=== PATIENT | female | born 1960 | race Caucasian/White ===

== ENCOUNTER 2023-12-18 18:58 | Emergency (ER) | payer OTHER, SELFPAY ==
[2023-12-18 18:59] VITALS: BMI 44.6
[2023-12-18 19:02] VITALS: BP 160/100
[2023-12-18 19:29] LABS: Urine Albumin Negative (Neg - Trace); Urine Bilirubin Negative (Negative); Urine Character Clear (Clear); Urine Color Yellow; Urine Glucose Negative (Negative); Urine Ketone Negative (Negative); Urine Leukocyte Trace (Negative); Urine Nitrite Negative (Negative); Urine Occult Blood Negative (Negative); Urine Urobilinogen Negative (Neg - 1+)
[2023-12-18 19:36] LABS: Urine Red Blood Cell None Seen /HPF (0-2); Urine White Cell 0-2 /HPF (0-5)
[2023-12-18 20:09] VITALS: BP 157/78
[2023-12-18 20:18] LABS: % Basophils 0.5 % (0-2); % Eosinophils 1.3 % (0-6); % Immature Granulocytes 0.3 % (0-0.5); % Lymphocytes 22.1 % (20.5-51.1); % Monocytes 5.5 % (1.7-9.3); % Neutrophils 70.3 % (42.2-75.2); Absolute Basophils 0.1 10^3/uL (0-0.2); Absolute Eosinophils 0.1 10^3/uL (0-0.7); Absolute Lymphocytes 2.4 10^3/uL (1.2-3.4); Absolute Monocytes 0.6 10^3/uL (0.1-0.6); Absolute Neutrophils 7.5 10^3/uL (1.4-6.5); Hematocrit 39.9 % (37.0-47.0); Hemoglobin 13.8 g/dL (12.0-16.0); Mean Corp Hgb Conc. 34.6 g/dL (33.0-37.0); Mean Corpuscular Hgb 29.8 pg (27.0-31.0); Mean Corpuscular Volume 86.2 fL (81.0-99.0); Nucleated Red Blood Cells % 0 %; Platelet Count 172 10^3/uL (130-400); Red Blood Cell Count 4.63 10^6/uL (4.20-5.40); White Blood Cell Count 10.6 10^3/uL (4.8-10.8)
[2023-12-18 20:34] LABS: ALT (SGPT) 16 U/L (0-35); AST (SGOT) 26 U/L (14-36); Albumin 4.8 g/dl (3.5-5.0); Alkaline Phosphatase 78 U/L (38-126); Blood Urea Nitrogen 15 mg/dl (7-17); Carbon Dioxide 21 mmol/L (22-30); Chloride 109 mmol/L (98-107); Estimated Creatinine Clearance 123 ml/min; Glucose 127 mg/dl (70-99); Potassium 4.1 mmol/L (3.5-5.1); Sodium 140 mmol/L (135-145); Total Bilirubin 0.7 mg/dl (0.2-1.3); Total Protein 7.5 g/dl (6.3-8.2); eGFR > 60.00
[2023-12-18 20:35] LABS: Lipase 92 U/L (23-300)
--- NOTE | 2023-12-18 21:28 | ED.GENMED ---
History of Present Illness
General
Chief Complaint: Abdominal Pain
Source: patient
Exam Limitations: none
Time Seen by Provider: 12/18/23 19:30
Nursing documentation reviewed up to this point in time: agreed with
Travel History
Have you had any contact with someone who has COVID-19?: No
Do you have any symptoms of coronavirus? Fever > 100 degrees, chills, cough, shortness of breath, sore throat, loss of taste or smell, muscle aches, or headache?: No
History of Present Illness
History of Present Illness:
63 y/o F with h/o afib in the past
no on anticoagulation
here with lower abd pain since this morning
was initially lower midline but now in the RLQ, it was worse earlier but now is better, 10/04
no diarrhea but some difficulty moving her bowels today, no blood, no diarrhea, no nausea, no vomiting
no fever
pt thinks she has diveritculosis but has never had abx for it
stil lhas her appendix
remote misty
Past History
Past History
ED Past Medical History: Arrthythmia (Afib on ASA and Flecinide) and Other (osteoarthritis)
ED Past Surgical History: Cholecystectomy and Orthopedic (L hip replacement 2014)
Social History
Tobacco: Non-smoker
Alcohol: None
Drug: None
Personal:
Living: with family
Family History
Family History: Other (bradycardia )
Review of Systems
Review of Systems
Allergies reviewed?: Yes
All Other Systems: Not applicable
Phy Exam
Physical Exam
Physical Exam:
GENERAL: Alert , in no apparent distress
EYE: pupils equal and reactive
NECK: Supple
ENT: o/p clr, mmm.
CARDIAC: Regular rate and rhythm .
LUNGS: Clear breath sounds bilaterally, no acute respiratory distress, no wheezes/rales/rhonchi
ABDOMEN: Soft, mild RLQ tenderness, no r/g, no cvat, normal bowel sounds
NEUROLOGICAL: Alert and oriented, no focal neuro deficits
SKIN: Warm and dry, skin intact.
MUSCULOSKELETAL: No edema, well perfused.
PSYCH: Normal and appropriate interaction.
Course
Orders/Labs/Results
Orders:
Orders
12/18/23 19:12
IV Insert/Care/Rem.- Treatment PRN
Straight cath- Treatment ONCE
12/18/23 19:22
Urinalysis Reflex To Culture Urgent
Date Specimen was Collected: 12/18/23
Time Specimen was Collected: 19:12
Urine Microscopic Reflex Cult Urgent
12/18/23 20:05
CT Abd/Pel (IV only)-DH only Urgent
Comment:
Reason For Exam: rlq pain since this morning
12/18/23 20:10
Complete Blood Count/With Diff Urgent
Comprehensive Metabolic Panel Urgent
Lipase Urgent
12/18/23 21:35
Electrocardiogram (*1) Urgent
Reason for Study: QTc Monitoring
EKG- Treatment ONCE
12/18/23 21:36
Amoxicillin 875 mg/Clav 125 mg [Augmentin 875 mg/125 mg] 1 tablet PO NOW STA
Abnormal Lab Results
12/18/23 12/18/23
19:22 20:10
MPV 11.0 H fL
(7.4-10.4)
Absolute Neuts (auto) 7.5 H 10^3/uL
(1.4-6.5)
Chloride 109 H mmol/L
(98-107)
Carbon Dioxide 21 L mmol/L
(22-30)
Creatinine 0.5 L mg/dL
(0.6-1.0)
Glucose 127 H mg/dl
(70-99)
Leukocyte Esterase Rfl Trace A
(Negative)
12/18/23 20:10
12/18/23 20:10
Vital Signs
Initial and Last Documented VS:
Initial Vital Signs
Temp Pulse Resp BP Pulse Ox
98.1 F 85 20 160/100 98
12/18/23 19:02 12/18/23 19:02 12/18/23 19:02 12/18/23 19:02 12/18/23 19:02
Last Documented Vital Signs
Temp Pulse Resp BP Pulse Ox
98.1 F 82 16 150/70 99
12/18/23 19:02 12/18/23 22:23 12/18/23 22:23 12/18/23 22:23 12/18/23 22:23
MDM/Problems Addressed
Differential Diagnosis Includes:
divertic, appe
MDM/Problems Addressed:
63 y/o F with lower abd pain since this mornig, comes in waves
some change in stool appaerance today
no fever
well controlled pain currently,localized tender RLQ mildly
urine unremarkable
normal wbc
ct show uncomplicated sigmoid divertic
initially states all to pcn but pt is on flecainide making levaquin less than ideal
pt says she can tolerate amoxicillin, so will try augmentin
she had rash with penicillin remotely
d/c home
clear liquids
*Critical Care Note
Total Time (30-74mins, 75-104mins- exclusive of procedures): Not Applicable
ED Attending Note
-
Portions of this chart may have been created with voice recognition software.� Occasional wrong word or��sound alike� substitutions may have occurred due to the inherent limitations of voice recognition software.
Discharge Plan
Departure
Patient Disposition: Home (Routine Discharge)
Date of Disposition: 12/18/23
Time of Disposition: 21:32
Patient with high blood pressure during this ER visit?: Yes
Condition: Fair
Covid-19: Not Applicable
Discharge Problem:
Diverticulitis
Instructions: Diverticulitis (DC)
Prescriptions:
New
amoxicillin-pot clavulanate 875-125 mg tablet
1 tab PO Q12H Qty: 20 0RF
No Action
prednisone 50 MG tablet
50 mg PO DAILY Qty: 4 0RF
doxycycline monohydrate 100 mg capsule
100 mg PO BID Qty: 14 0RF
albuterol sulfate [ProAir HFA] 90 mcg/actuation Hfa Aerosol Inhaler
2 puff INHALATION Q4HPRN PRN (Reason: shortness of breath/cough) Qty: 90 0RF
Rx Instructions:
Dispense with spacer
Activity Restrictions/Additional Instructions:
YOUR CAT SCAN SHOWS SIGMOID DIVERTICULITIS
TRY CLEAR LIQUIDS FOR 24 HOURS
TAKE TYLENOL EVERY 6 HOURS NEEDED FOR PAIN
AUGMENTIN 1 TAB TWICE A DAY FOR 10 DAY
RETURN FOR:SEVERE PAIN, FEVER, VOMTING, BLOODY DIARRHEA OR ANY CONCERNS.
Interventions
Interventions:
*Risk Screen - Suicide Last Done: 12/18/23 19:02
*General Assessment Last Done: 12/18/23 19:02
*Neglect/Abuse Screening Last Done: 12/18/23 19:02
ED- Fall Risk Assessment Last Done: 12/18/23 19:02
*ED COVID-19 Vaccine History Last Done: 12/18/23 19:02
*Nursing Disposition Last Done: 12/18/23 22:24
MU-Ptskwp-Pjjrjnncsg Assessment Last Done: 12/18/23 20:15
Discharge Date and Time
Discharge Date/Time: 12/18/23 22:24
Print Language: CHINESE
[2023-12-18] MEDS: AUGMENTIN 875 MG/125 MG 1 TABLET PO (21:58)
[2023-12-18 22:23] VITALS: BP 150/70
== END 2023-12-18 22:24 | disposition home or self-care (01) ==
LOC: EMR 18:58
PROVIDERS: Emergency Medicine; EMERGENCY PHYSICIAN Emergency Medicine; FAMILY PHYSICIAN Family Medicine
DX: K57.92 Diverticulitis of intestine, part unspecified, without perforation or abscess without bleeding (principal); R10.9 Unspecified abdominal pain
CPT/HCPCS: 99284; 74177; 80053; 81003; 81015; 83690; 85025; Q9967

== ENCOUNTER → 2025-04-08 08:02 | Outpatient (REF) | payer BC, SELFPAY | LOC: HWRCS 08:02 | PROVIDERS: ATTENDING PHYSICIAN Internal Medicine Cardiovascular Disease; FAMILY PHYSICIAN Family Medicine | DX: I48.0 Paroxysmal atrial fibrillation (principal); E78.5 Hyperlipidemia, unspecified | CPT/HCPCS: 93306 ==

== ENCOUNTER → 2025-04-12 07:40 | Outpatient (REF) | payer BC, SELFPAY | LOC: PET 07:40 | PROVIDERS: ATTENDING PHYSICIAN Internal Medicine Cardiovascular Disease | DX: I48.0 Paroxysmal atrial fibrillation (principal); E66.9 Obesity, unspecified; E78.5 Hyperlipidemia, unspecified | CPT/HCPCS: 78431; A9555; J2785 ==

== ENCOUNTER → 2025-05-16 09:25 | Outpatient (REF) | payer BC, SELFPAY | LOC: DHSLP 09:25 | PROVIDERS: ATTENDING PHYSICIAN Internal Medicine Cardiovascular Disease; FAMILY PHYSICIAN Family Medicine | DX: G47.33 Obstructive sleep apnea (adult) (pediatric) (principal) | CPT/HCPCS: 95800 ==

== ENCOUNTER 2025-07-01 08:43 | Day surgery (SDC) | payer BC, SELFPAY ==
[2025-06-16 08:45] LABS: Hematocrit 39.1 % (37.0-47.0); Hemoglobin 12.9 g/dL (12.0-16.0); Mean Corp Hgb Conc. 33.0 g/dL (33.0-37.0); Mean Corpuscular Volume 91.1 fL (81.0-99.0); Nucleated Red Blood Cells % 0 %; Platelet Count 169 10^3/uL (130-400); Red Cell Dist. Width 13.5 % (11.5-14.5)
[2025-06-16 08:47] LABS: INR 1.02; PT 13.7 Sec (11.4-14.6)
[2025-06-16 09:33] LABS: ALT (SGPT) 14 U/L (0-35); AST (SGOT) 18 U/L (14-36); Albumin 4.4 g/dl (3.5-5.0); Alkaline Phosphatase 61 U/L (38-126); Blood Urea Nitrogen 19 mg/dl (7-17); Calcium 9.6 mg/dl (8.4-10.2); Carbon Dioxide 28 mmol/L (22-30); Chloride 108 mmol/L (98-107); Glucose 103 mg/dl (70-99); Magnesium 2.0 mg/dl (1.6-2.3); Potassium 4.4 mmol/L (3.5-5.1); Sodium 141 mmol/L (135-145); Total Protein 7.1 g/dl (6.3-8.2); eGFR > 60.00
[2025-06-16 13:36] VITALS: BMI 41.5
[2025-06-16 14:07] LABS: Free T3 3.87 pg/ml (2.77-5.27)
[2025-06-16 14:21] LABS: TSH 0.80 uIU/ml (0.47-4.68)
[2025-07-01] VITALS (9 sets, daily range): BP systolic 96–136; BP diastolic 45–90
[2025-07-01 13:27] LABS: ACT-LR - POC 250 Seconds (116-155)
[2025-07-01 13:44] LABS: ACT-LR - POC 295 Seconds (116-155)
[2025-07-01 14:05] LABS: ACT-LR - POC 339 Seconds (116-155)
[2025-07-01 14:25] LABS: ACT-LR - POC 245 Seconds (116-155)
--- NOTE | 2025-07-01 14:29 | ITS.CL.ABL ---
Flat Folding Machine Operator - Ablation
Ablation
Procedure Report:
Primary Industrial Education Teacher: Dr Otilia Sawyer
Procedure Date: 07/01/2025
Patient History:
Patient is a pleasant 65-year-old female with a past medical history significant for hypertension, hyperlipidemia, sleep apnea, arthritis, obesity, and symptomatic paroxysmal atrial fibrillation.
See H&P for complete details.
Indication:
Symptomatic paroxysmal atrial fibrillation
Breakthrough AF on antiarrhythmic medical therapy
Arrhythmia Specific History:
Prior Medical Therapies for Rate and Rhythm Control:
X Beta-edgar
[ ] Calcium channel-edgar
[ ] Amiodarone
[ ] Dronederone
[ ] Sotalol
X Flecainide
[ ] Dofetilide
X Options limited by bradycardia
[ ] Options limited by comorbid renal disease
Prior Procedural Therapies for AF/AFL:
[ ] Cardioversion
[ ] Pulmonary Vein Isolation
[ ] Posterior Wall Isolation
[ ] Additional lines (Specify)
[ ] Surgical Jordan-MAZE or PVI (Specify)
Procedure Performed:
X AF ablation procedure (82665) -- includes LA/CS pacing, trans-septal, 3D mapping, + ICE
[ ] +IV drug (20867)
[ ] +Other Arrhythmia (36019)
[ ] +Other AF Line/ablation (18765)
Risks and expected recovery has been explained in detail. Alternative options have been explored, and in a shared-decision making fashion we have decided that this was the most appropriate procedure.
Method
NPO status confirmed. Grounding pad applied. Defibrillator pads applied. Continuous surface ECG, pulse oximetry, and blood pressure were monitored. Procedure was performed under general anesthesia, with anesthesia services.
Both groins were clipped, prepped with Chloraprep, and draped in sterile fashion. Time out was called. Local anesthesia administered with bupivacaine. The right femoral vein was accessed for catheter placement, using ultrasound guidance (images
saved to record), micro-puncture needle/wire, and modified seldinger technique. 3 sheaths were placed. The following catheters were used:
[ ] Tacticath SE (D/F Curve) ablation catheter
X Viewflex 9Fr ICE catheter
X Inquiry decapolar 6Fr diagnostic catheter
[ ] CRD Hex 6Fr
X FlexCath Contour 10 Fr with PulseSelect PFA Catheter
X Advisor HD Grid Mapping Catheter, SE
[ ] Acuson AcuNav 8 Fr ICE catheter
[ ]Other: [ ]
Intracardiac ultrasound (ICE) was carefully advanced into the right atrium to guide sheath placement over a J-wire, catheter placement, guide trans-septal puncture, identify potential complications, identify anatomic structures and ensure proper
contact between ablation catheter and tissue.
Heparin was given prior to trans-septal puncture. Heparin was given to achieve and maintain a target ACT of 300-400 seconds throughout the procedure.
Trans-septal access was performed under ICE guidance. The trans-septal puncture was performed with a SafeSept wire through a Brockenbrough needle assembly through the steerable sheath. The wire was visualized as it entered the LSPV and system
advanced under ICE guidance and fluoroscopy into the LA. The Brockenbrough needle assembly, SafeSept wire and sheath dilator were removed under negative pressure. LA pressure was measured and recorded.
ICE and 3D mapping was performed to identify relevant cardiac structures. A careful 3D map was created to assess for regions of low-voltage and abnormal electrogram signals using HD grid mapping catheter and PulseSelect catheter. Additional mapping
was performed as outlined below. During initial mapping, patient went into atrial fibrillation. 200 J synchronous direct-current cardioversion was performed with scientology of sinus rhythm.
Prior to ablation, glycopyrrolate was provided. PulseSelect catheter was advanced over J-wire to the ostium of each vein. Pulmonary vein isolation was performed with ostial and antral lesions in a circumferential manner. Contact was visualized via
EAM, ICE, fluoroscopy, and EGM signals. During ablation, patient had returned of AF. Ablation was performed while patient in AF.
Following completion of ablation lesions, sinus rhythm was restored with a 200J synchronized DCCV and a post-ablation voltage/activation map was performed in sinus rhythm. Entrance and exit block were confirmed for each vein.
Catheter and sheath were removed from the left atrium and post-ablation intracardiac echo evaluation was consistent with pre-ablation with no changes and no pericardial effusion and there is no left atrial thrombus or left ventricle thrombus seen.
Electrophysiology study was performed. Hemostasis was obtained with Vascade for each sheath and with manual pressure. Protamine was used for reversal.
Estimated Blood Loss
5 mL
Complications
None
Fluoroscopy: 7.0 minutes; 114.57 mGy; DAP 11.3
LA Pressure: Pre 8 mmHg, post 10 mmHg
Baseline Intervals:
Rhythm: SR
WY: 148 ms
QRS: 124 ms
QT: 414 ms
QTc: 444 ms
A-A: 870 ms
R-R: 870 ms
Post-Procedure Intervals:
WY: 163 ms
QRS: 118 ms
QT: 464 ms
QTc: 469 ms
A-A: 980 ms
R-R: 980 ms
AVWB: 330 ms
AVNERP: 600/300 ms
AERP: 600/300 ms
Recommendations
- Bedrest with straight-leg precautions as ordered
- Anticipate same day discharge if patient meeting clinical metrics
- Resume home medications as indicated
- Ok to resume anticoagulation tonight if patient and groin sites stable
- Plan for follow-up in office as scheduled
- Continue beta-edgar and flecainide with plan for discontinuation at 3-month interval
Raul Cotto, , FACC, [facility]
Clinical Cardiac Dispute Coordinator
cc: Dr Otilia Sawyer; Dr Carlotta Mcnair
--- NOTE | 2025-07-01 15:07 | W.PN.UPDATE ---
Update Note
Progress Note Update
Addendum to ablation procedure performed 07/01/2025:
Patient stated to staff that she had not taken her oral anticoagulation for the past 2 days with last dose on Friday06/28/2025. Additionally, when questioned, patient stated she missed several doses of the last few weeks due to intermittent
nosebleeds. Out of safety, patient underwent ARA to rule out left atrial appendage thrombus prior to initiation of ablation. Report separately by Dr. Holm. No evidence of left atrial appendage thrombus on echocardiography.
--- NOTE | 2025-07-01 15:34 | W.PN.UPDATE ---
Update Note
Progress Note Update
Pt seen post PFA. Right groin site with vascade closure, no ht/bleeding. Post EKG NSR 60s, lateral TWI noted, as before. Resume eliquis tonight. Continue flecainide and metoprolol as before. Followup at [facility] as scheduled. Home today if groin
site/tele remain stable.
[2025-07-01] MEDS: ANESTHETIC LOZENGE 1 LOZENGE PO (16:56)
== END 2025-07-01 17:41 | disposition home or self-care (01) ==
LOC: CATH 08:43
PROVIDERS: ATTENDING PHYSICIAN Internal Medicine Cardiovascular Disease; FAMILY PHYSICIAN Family Medicine; OTHER PHYSICIAN Internal Medicine Cardiovascular Disease
DX: I48.0 Paroxysmal atrial fibrillation (principal); Z79.899 Other long term (current) drug therapy; I10 Essential (primary) hypertension; E78.5 Hyperlipidemia, unspecified; R00.1 Bradycardia, unspecified; G47.33 Obstructive sleep apnea (adult) (pediatric); M19.90 Unspecified osteoarthritis, unspecified site; K21.9 Gastro-esophageal reflux disease without esophagitis; E04.2 Nontoxic multinodular goiter; E66.01 Morbid (severe) obesity due to excess calories; Z68.39 Body mass index [BMI] 39.0-39.9, adult; Z90.49 Acquired absence of other specified parts of digestive tract; Z96.611 Presence of right artificial shoulder joint; Z96.643 Presence of artificial hip joint, bilateral; Z96.653 Presence of artificial knee joint, bilateral; Z79.01 Long term (current) use of anticoagulants; Z88.0 Allergy status to penicillin; I34.0 Nonrheumatic mitral (valve) insufficiency
CPT/HCPCS: 93312; 93320; 93325; C1733; C1766; C1732; C1894; C1769; C1892; C1759; 36415; 75572; 80053; 83735; 84439; 84443; 84481; 85025; 85347; 85610; 86850; 86900; 86901; 93005; 93656; C1760; Q9967

== ENCOUNTER 2025-07-05 11:09 | Emergency (ER) | payer BC, SELFPAY ==
[2025-07-05 11:16] VITALS: BP 182/88
[2025-07-05 12:40] VITALS: BMI 42.1
[2025-07-05 12:44] VITALS: BP 136/82
--- NOTE | 2025-07-05 13:46 | ED.GENMED ---
History of Present Illness
General
Chief Complaint: Abnormal Lab Value
Time Seen by Provider: 07/05/25 12:29
History of Present Illness
History of Present Illness:
65-year-old female presents the emergency department for evaluation of nosebleed. She presents to urgent care for this where she was noted to have abnormal EKG and was sent to the ED. She denies chest pain but does have occasional palpitations.
She is about 1 week status post ablation for atrial fibrillation. She is anticoagulated on Eliquis. No bleeding at present
Past History
Past History
ED Past Medical History: Arrthythmia (Afib on ASA and Flecinide) and Other (osteoarthritis)
ED Past Surgical History: Cholecystectomy and Orthopedic (L hip replacement 2014)
Social History
Tobacco: Non-smoker
Alcohol: None
Drug: None
Personal:
Living: with family
Family History
Family History: Other (bradycardia )
Review of Systems
Review of Systems
Allergies reviewed?: Yes
All Other Systems: ROS reviewed and negative except as documented in HPI and ROS
Phy Exam
Physical Exam
Physical Exam:
GEN: Well appearing, NAD, WDWN
HEENT: Oral mucosa moist, no scleral icterus, evidence of recent bleeding to the right nare anterior nasal septum
Cardiac: Regular rate
Lung: No respiratory distress, no tachypnea
MSK: No gross deformity or injuries
Skin: Good color, no pallor or jaundice, no rashes
Neuro: AO x3, moves all extremities freely
Psych: Calm, cooperative
Course
Orders/Labs/Results
Orders:
Orders
07/05/25 11:19
Electrocardiogram (*1) Urgent
Reason for Study: Abnormal EKG
EKG- Treatment ONCE
Vital Signs
Initial and Last Documented VS:
Initial Vital Signs
Temp Pulse Resp BP Pulse Ox
97.4 F 71 18 182/88 98
07/05/25 11:16 07/05/25 11:16 07/05/25 11:16 07/05/25 11:16 07/05/25 11:16
Last Documented Vital Signs
Temp Pulse Resp BP Pulse Ox
97.4 F 56 16 136/82 100
07/05/25 11:16 07/05/25 12:44 07/05/25 12:44 07/05/25 12:44 07/05/25 13:47
Procedures
Nosebleed
Drug treatment: Lidocaine and Epinephrine
Treatment: Silver nitrate cautery
Post treatment bleeding: none- good control
MDM/Problems Addressed
MDM/Problems Addressed:
EKG obtained in the ED is unremarkable with no ischemic changes, she does have occasional PVCs but no evidence of recurrent A-fib after her ablation. She has no cardiac complaints otherwise. In regards to the epistaxis cautery was performed with
good control, discussed supportive care with topical antibiotics and ENT follow-up if needed
*Pulse Oximetry
SaO2: 100
Oxygen Mode of Delivery: Room air
Patient hypoxic: no
*Critical Care Note
Total Time (30-74mins, 75-104mins- exclusive of procedures): Not Applicable
ED Attending Note
-
Portions of this chart may have been created with voice recognition software.� Occasional wrong word or��sound alike� substitutions may have occurred due to the inherent limitations of voice recognition software.
Discharge Plan
Departure
Patient Disposition: Home (Routine Discharge)
Date of Disposition: 07/05/25
Time of Disposition: 13:47
Patient with high blood pressure during this ER visit?: No
Discharge Problem:
Acute anterior epistaxis
Instructions: Nosebleeds (DC)
Prescriptions:
No Action
flecainide 100 mg Tablet
50 mg PO BID
metoprolol succinate 25 mg Tablet Extended Release 24 Hr
12.5 mg PO HS
magnesium 200 mg Tablet
400 mg PO DAILY
omeprazole 20 mg Tablet,Delayed Release (Dr/Ec)
20 mg PO DAILY
PreserVision AREDS-2 250-90-40-1 mg Capsule
1 tab PO BID
Eliquis 5 mg Tablet
5 mg PO BID
Referrals:
Vinod Chung, DO [Active, ENT]
Activity Restrictions/Additional Instructions:
Neosporin twice daily for 5 days
Follow up with ENT as needed
Interventions
Interventions:
*Risk Screen - Suicide Last Done: 07/05/25 11:16
*General Assessment Last Done: 07/05/25 11:16
*Neglect/Abuse Screening Last Done: 07/05/25 11:16
*Nursing Disposition Last Done: 07/05/25 14:10
ED-EENT Assessment Last Done: 07/05/25 12:45
Discharge Date and Time
Discharge Date/Time: 07/05/25 14:11
Print Language: ICELANDIC
== END 2025-07-05 14:11 | disposition home or self-care (01) ==
LOC: EMR 11:09
PROVIDERS: EMERGENCY PHYSICIAN Student in an Organized Health Care Education/Training Program; FAMILY PHYSICIAN Family Medicine
DX: R04.0 Epistaxis (principal); I49.3 Ventricular premature depolarization; I48.91 Unspecified atrial fibrillation; M19.90 Unspecified osteoarthritis, unspecified site; Z79.01 Long term (current) use of anticoagulants; Z96.642 Presence of left artificial hip joint
CPT/HCPCS: 99283; 30901; 93005

== ENCOUNTER 2025-08-06 23:37 | Emergency (ER) | payer BC, SELFPAY ==
[2025-08-06 23:38] VITALS: BP 212/108
[2025-08-06 23:53] VITALS: BP 161/79
--- NOTE | 2025-08-06 23:54 | ED.GENMED ---
History of Present Illness
General
Chief Complaint: Head Injury
Source: patient
Exam Limitations: none
Time Seen by Provider: 08/06/25 23:44
History of Present Illness
History of Present Illness:
65-year-old female on Eliquis presents after slip and fall. She slipped on the ice hitting the back of her head and injured her right knee. There is no loss of conscious. There is no preceding lightheadedness or chest pain. She does state since
the fall she may have gone back into atrial fibrillation. She last took her Eliquis this evening. No other complaints. She denies neck pain.
Past History
Past History
ED Past Medical History: Arrthythmia (Afib on ASA and Flecinide) and Other (osteoarthritis)
ED Past Surgical History: Cholecystectomy and Orthopedic (L hip replacement 2014)
Social History
Tobacco: Non-smoker
Alcohol: None
Drug: None
Personal:
Living: with family
Family History
Family History: Other (bradycardia )
Phy Exam
Physical Exam
Physical Exam:
General: Well-appearing female no acute respiratory distress
HEENT normal cephalic hematoma noted left posterior scalp pupils equal round react light TMs normal heart: Regular rate and rhythm musculoskeletal exam: The spine is nontender the right knee is slightly tender anteriorly good range of motion all
extremities
Skin: Abrasion noted to the anterior right knee
Ext: NO cyanosis
Course
Orders/Labs/Results
Orders:
Orders
08/06/25 23:43
ECG [Electrocardiogram (*1)] Urgent
Reason for Study: Atrial Fibrillation
EKG- Treatment ONCE
08/07/25 00:01
CT Head W/o Iv Contrast Urgent
Reason For Exam: FALL ON ICE HITTING LEFT POSTERIOR HEAD
08/07/25 00:05
CR Knee- Right 4 Or More View* Urgent
Reason For Exam: fall
Vital Signs
Initial and Last Documented VS:
Initial Vital Signs
Temp Pulse Resp BP Pulse Ox
97.6 F 80 22 212/108 98
08/06/25 23:38 08/06/25 23:38 08/06/25 23:38 08/06/25 23:38 08/06/25 23:38
Last Documented Vital Signs
Temp Pulse Resp BP Pulse Ox
97.6 F 72 15 160/79 95
08/06/25 23:38 08/07/25 00:00 08/07/25 00:00 08/07/25 00:00 08/07/25 00:00
MDM/Problems Addressed
Differential Diagnosis Includes:
Mechanical fall with head strike on Eliquis. Concern for scalp hematoma but skull fracture versus intracranial hemorrhage. CT of the head ordered. X-ray right knee pending as well. EKG obtained through triage and reviewed personally demonstrates
sinus rhythm with PVCs no ischemic changes
*Pulse Oximetry
SaO2: 98
Oxygen Mode of Delivery: Room air
Patient hypoxic: no
*Critical Care Note
Total Time (30-74mins, 75-104mins- exclusive of procedures): Not Applicable
Update Note
Update Note:
CT head negative for intracranial hemorrhage or skull fracture. X-ray right knee negative for fracture. Patient reassured. Recommended Tylenol for pain. Stable for discharge.
ED Attending Note
-
Portions of this chart may have been created with voice recognition software.� Occasional wrong word or��sound alike� substitutions may have occurred due to the inherent limitations of voice recognition software.
Discharge Plan
Departure
Patient Disposition: Home (Routine Discharge)
Date of Disposition: 08/07/25
Time of Disposition: 00:58
Patient with high blood pressure during this ER visit?: No
Discharge Problem:
Contusion
Instructions: Contusion (DC)
Prescriptions:
No Action
flecainide 100 mg Tablet
50 mg PO BID
metoprolol succinate 25 mg Tablet Extended Release 24 Hr
12.5 mg PO HS
magnesium 200 mg Tablet
400 mg PO DAILY
omeprazole 20 mg Tablet,Delayed Release (Dr/Ec)
20 mg PO DAILY
PreserVision AREDS-2 250-90-40-1 mg Capsule
1 tab PO BID
Eliquis 5 mg Tablet
5 mg PO BID
Referrals:
Carlotta Iglesias DO [Family Provider, Family Practice]
Activity Restrictions/Additional Instructions:
Ice to the sore spot. May use Tylenol for pain peer return if worse otherwise follow-up with your doctor
Interventions
Interventions:
*Risk Screen - Suicide Last Done: 08/06/25 23:38
*General Assessment Last Done: 08/06/25 23:47
*Neglect/Abuse Screening Last Done: 08/06/25 23:38
*ED COVID-19 Vaccine History Last Done: 08/06/25 23:47
*ED Influenza Vaccine History Last Done: 08/06/25 23:47
[facility] Risk Assessment Tool Last Done: 08/06/25 23:45
ED- Neurological Assessment Last Done: 08/06/25 23:47
ED-Skin Assessment Last Done: 08/06/25 23:47
Discharge Date and Time
Print Language: WOLOF
[2025-08-07] VITALS: BP 160/79
[2025-08-07 01:31] VITALS: BP 128/53
== END 2025-08-07 01:44 | disposition home or self-care (01) ==
LOC: EMR 23:37
PROVIDERS: EMERGENCY PHYSICIAN Emergency Medicine; FAMILY PHYSICIAN Family Medicine
DX: S00.03XA Contusion of scalp, initial encounter (principal); S89.91XA Unspecified injury of right lower leg, initial encounter; W00.0XXA Fall on same level due to ice and snow, initial encounter; I48.91 Unspecified atrial fibrillation; Z79.01 Long term (current) use of anticoagulants
CPT/HCPCS: 99284; 70450; 73564; 93005